=== PATIENT | male | born 1950 | race Caucasian/White ===

== ENCOUNTER 2017-09-04 05:31 | Day surgery (SDC) | payer BC, OTHER ==
[2017-09-03 10:36] VITALS: BMI 34.5
--- NOTE | 2017-09-03 11:40 | HP ---
HISTORY OF PRESENT ILLNESS: Mr. Rubio is a 67-year-old male who presents with trouble swallowing and neck pain. He said he is having these symptoms over several years. He commonly chokes on his food when trying to swallowing that. On CT, has a large anterior osteophyte at C3-C5. He is in good health. He has good strength in the bilateral upper extremity and has decent balance on heel to toe walk. He has intermittent numbness in his hands in the right arm. When he looks to the left, he has dizziness on flexion of his neck. IMAGING: CT cervical spine on CD PAST MEDICAL HISTORY: Unknown. PAST SURGICAL HISTORY: Denies past surgical history. MEDICATIONS: Flonase allergy relief 50 mcg/suspension 2 sprays in each nostril nasally once a day. Azelastine HCL 0.1% solution 1 spray in each nostril nasally twice a day. PHYSICAL EXAMINATION: HEENT: Normocephalic, atraumatic. Hearing intact. Moist mucous membranes. Trachea is midline. Eyes: Pupils are equal and reactive to light. Extraocular muscles are intact. Sclerae is white, nonicteric. PSYCHIATRIC: Normal mood and affect. CARDIOVASCULAR/CARDIOPULMONARY: No cyanosis or clubbing noted. Intact pedal pulses bilaterally. MUSCULOSKELETAL: Upper extremity, 5/5 strength in bilateral biceps and triceps. Full range of motion in the upper extremity intermittent sensory deficits bilaterally. RESPIRATORY: The patient has bilateral symmetric chest rise. Appears to have no shortness of breath. All lung pack sound clear with no wheezing or crackles. NEUROLOGIC: Cranial nerves II-XII are grossly intact. Speech is fluent, answers my questions appropriately. Patient has normal gait and station. ASSESSMENT: 1. Ankylosing hyperostosis of the cervical region. 2. Bone spur. 3. 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 PLAN: We are treating dysphagia from osteophyte to the cervical spine. Dr. Cheney offered surgery and removal of the large bone spurs. Informed consent was given. We discussed the indications, risks, benefits, alternatives , and expected results from surgery. The risks discussed included, but not limited to bleeding, infection, CSF leak, nerve damage, weakness, swallowing trouble, feeding tube placement, tracheal injury, esophageal injury, vocal cord injury, spinal cord injury, incontinence, paralysis, ventilator dependence, wheelchair dependence, stroke, loss of vision, cardiopulmonary complications of anesthesia, carotid artery injury, jugular vein injury, hardware misplacement, or . Long-term complications discussed included, but were not limited to hardware failure and degeneration of surrounding disk. Understands the risks and is willing to proceed with the surgery. HERB
[2017-09-04] MEDS ORDERED: Thrombin 5000 UNITS/5 ML VIAL ONE (06:16)
[2017-09-04] MEDS ORDERED: Sodium Chloride 0.9% 10 ML ONE (06:16)
[2017-09-04] MEDS ORDERED: Levofloxacin 500 mg/D5W 100 ml Premix Bag ONE (06:17)
[2017-09-04] MEDS ORDERED: Clindamycin/D5W 900 mg/50 ml Premix Bag ONE (06:17)
[2017-09-04 06:42] LABS: INR-International Normal Ratio 1.1; PTT 28.6 SEC (22.9-36.1); Prothrombin Time 14.1 SEC (12.0-14.7)
[2017-09-04] MEDS ORDERED: Midazolam HCl 2 mg/2 ml Vial ONE ×2 (07:16→09:23)
[2017-09-04] MEDS ORDERED: Fentanyl 100 MCG/2 ML VIAL ONE ×4 (07:16→11:39)
[2017-09-04] MEDS ORDERED: Promethazine HCl 25 MG/ML VIAL IM/IV PRN (10:57)
[2017-09-04] MEDS ORDERED: Ondansetron HCl/PF 4 MG/2 ML Vial IVP PRN (10:57)
[2017-09-04] MEDS ORDERED: Non-Formulary Medication 1 EACH PO PRN (10:57)
--- NOTE | 2017-09-04 11:35 | OP ---
DATE OF PROCEDURE: 09/04/2017 SURGEON: Kristen Cheney M.D. BACK OFFICE MEDICAL ASSISTANT: Kvng Muniz PA-C. PREOPERATIVE INDICATION: Treat dysphagia. PREOPERATIVE DIAGNOSES: Forestier's disease with anterior cervical osteophytes, esophageal indentati on, dysphagia. POSTOPERATIVE DIAGNOSES: Forestier's disease with anterior cervical osteophytes, esophageal indentat ion, dysphagia. OPERATIVE PROCEDURE: Exposure of anterior spine, removal of anterior osteophytes, C4, C5, C6. PREOPERATIVE MEDICATION: Clindamycin 900 mg IV, Levaquin 500 mg IV. DRAIN NUMBER: 0. DRAIN TYPE: None. OPERATIVE DICTATION: The patient was brought to the operating room. General endotracheal anesthesia was induced. The patient was positioned supine on the operating table with his head supported by ge l-filled donut shaped head rest. A lateral fluoro radiograph was used to plan our incision. The rig ht side of the neck was sterilely prepped and draped. We opened with a 10 blade knife and controlled bleeding with bipolar cautery. We dissected sharply to the platysma and cut this muscle in line wit h our incision. We continued our dissection medial to the sternocleidomastoid and lateral to the tra bryan and esophagus. We arrived to the prevertebral space. There was a very large anterior osteophyt e at C4-5. We placed a marker above the osteophyte and took a lateral fluoro radiograph to confirm t he levels upon which we were operating. We then carefully elevated the longus colli muscles off the anterior and lateral surface of C4, C5, C6, and the top of C7. Self-retaining retractors were placed . Using Adson, Leksell and Stille rongeurs, we removed osteophytes from the anterior surface of C4, C5, C6, and the top of C7. We used a high-speed drill with a cr bit to smooth out the anterior surface of the bone. We waxed the bone edges anteriorly. We took multiple x-rays to confirm removal of osteophytes and we ensured the anterior surface of the spine was smooth and well waxed. Hemostas is was excellent. We irrigated copiously with bacitracin irrigation. We closed in anatomic layers a nd we applied a sterile dressing. This was a clean case and no contamination.
[2017-09-04] MEDS ORDERED: ePHEDrine/0.9% NaCl/PF SYRINGE 50 mg/10 ml ONE (16:27)
[2017-09-04] MEDS ORDERED: Succinylcholine Chloride 20 MG/ML 10 ml SYRINGE FS ONE (16:27)
[2017-09-04] MEDS ORDERED: Glycopyrrolate 0.2 MG/ML 5 ML SYRINGE ONE (16:27)
[2017-09-04] MEDS ORDERED: diphenhydrAMINE 50 MG/ML VIAL ONE (16:27)
[2017-09-04] MEDS ORDERED: Dexamethasone 20 MG/5 ML VIAL ONE (16:27)
[2017-09-04] MEDS ORDERED: PROPOFOL 200 MG/20 ML VIAL ONE (16:27)
[2017-09-04] MEDS ORDERED: PHENYLEPHRINE-NS 100 MCG/ML 10 ML SYRINGE ONE (16:27)
[2017-09-04] MEDS ORDERED: Lidocaine 1% PF 5 ML VIAL ONE (16:27)
== END 2017-09-04 13:35 | disposition home or self-care (01) ==
LOC: SDC 05:31
PROVIDERS: ATTEND Neurological Surgery
PROC: 0PB30ZZ Excision of Cervical Vertebra, Open Approach (ICD-10-PCS; principal; 2017-09-04)
DX: M48.12 Ankylosing hyperostosis [Forestier], cervical region (principal); M77.9 Enthesopathy, unspecified; M47.816 Spondylosis without myelopathy or radiculopathy, lumbar region; R13.10 Dysphagia, unspecified; Z79.51 Long term (current) use of inhaled steroids; Z79.899 Other long term (current) drug therapy; Z88.0 Allergy status to penicillin; Z88.5 Allergy status to narcotic agent; Z91.048 Other nonmedicinal substance allergy status
CPT/HCPCS: 36416; 76001; 85610; 85730; 96374; A4216; J0131; J1100; J1200; J1956; J2001; J2250; J2704; J3010; J3490

== ENCOUNTER 2017-11-09 14:14 | Outpatient (CLI) | payer BC, OTHER ==
--- NOTE | 2017-11-09 15:31 | RAD ---
CERVICAL SPINE 3 VIEWS: HISTORY: Neck pain. FINDINGS: There is reversal of the normal lordotic curvature. Vertebral body height and alignment are maintain ed with the lateral view showing down to the C6-7 level. Cervicothoracic function grossly intact. O steophytosis throughout the vertebral bodies and facets. No aggressive osseous erosions. IMPRESSION: Degenerative changes cervical spine. POS: RAMAN
== END 2017-11-09 14:15 | disposition home or self-care (01) ==
LOC: TBSIIMAG 14:14
PROVIDERS: ATTEND Neurological Surgery
DX: M54.2 Cervicalgia (principal); M47.892 Other spondylosis, cervical region
CPT/HCPCS: 72040